=== PATIENT | male | born 1985 | race Hispanic/Latino ===

== ENCOUNTER 2017-05-05 07:31 | Emergency (ER) | payer OTHER ==
[~2017-05-05] VITALS: Ht 162.6 cm; Wt 61.2 kg
[~2017-05-05 07:31] MED LIST: IBUPROFEN800 MG PO; TRAMADOL HCL50 MG PO
[2017-05-05] MEDS ORDERED: AFRIN15 ML INH (07:43)
== END 2017-05-05 07:57 | disposition home or self-care (01) ==
LOC: ED 07:31
DX: Z00.8 Encounter for other general examination (principal)

== ENCOUNTER 2017-07-01 08:04 | Emergency (ER) | payer OTHER ==
[~2017-07-01] VITALS: Ht 162.6 cm; Wt 61.2 kg
[~2017-07-01 08:04] MED LIST changes: +AFRIN15 ML INH
[2017-07-01] MEDS ORDERED: KETOROLAC TROME10 MG PO (10:08)
== END 2017-07-01 10:24 | disposition home or self-care (01) ==
LOC: ED 08:04
DX: R10.9 Unspecified abdominal pain (principal); Z87.442 Personal history of urinary calculi; Z98.890 Other specified postprocedural states
CPT/HCPCS: 74176; 80053; 81001; 85025; 96374; 96375; 96376; 99284; J1885; J2405

== ENCOUNTER 2019-05-07 08:50 | Emergency (ER) | payer OTHER ==
[~2019-05-07] VITALS: Ht 162.6 cm; Wt 61.2 kg
[~2019-05-07 08:50] MED LIST changes: +KETOROLAC TROME10 MG PO
[2019-05-07] MEDS ORDERED: ALEVE220 MG PO (09:01)
[2019-05-07] MEDS ORDERED: ULTRAM50 MG PO (09:28)
[2019-05-07] MEDS ORDERED: CYCLOBENZAPRINE10 MG PO (09:28)
== END 2019-05-07 10:08 | disposition home or self-care (01) ==
LOC: ED 08:50
DX: S39.92XA Unspecified injury of lower back, initial encounter (principal); Z87.442 Personal history of urinary calculi; X50.1XXA Overexertion from prolonged static or awkward postures, initial encounter
CPT/HCPCS: 99283

== ENCOUNTER 2019-10-03 11:06 | Emergency (ER) | payer OTHER ==
[~2019-10-03] VITALS: Ht 162.6 cm; Wt 61.2 kg
[~2019-10-03 11:06] MED LIST changes: +ALEVE220 MG PO; +CYCLOBENZAPRINE10 MG PO; +ULTRAM50 MG PO
== END 2019-10-03 12:01 | disposition home or self-care (01) ==
LOC: ED 11:06
DX: S61.213A Laceration without foreign body of left middle finger without damage to nail, initial encounter (principal); Z23 Encounter for immunization; Z87.442 Personal history of urinary calculi; W26.8XXA Contact with other sharp object(s), not elsewhere classified, initial encounter
CPT/HCPCS: 90471; 90715; 99282-25

== ENCOUNTER 2021-01-06 07:04 | Emergency (ER) | payer BC, OTHER ==
[~2021-01-06] VITALS: Ht 162.6 cm; Wt 65.8 kg
[2021-01-06] MEDS ORDERED: MAGNESIUM250 M1 PO ×2 (07:16)
== END 2021-01-06 08:22 | disposition home or self-care (01) ==
LOC: ED 07:04
DX: K29.00 Acute gastritis without bleeding (principal); F17.200 Nicotine dependence, unspecified, uncomplicated; Z79.899 Other long term (current) drug therapy
CPT/HCPCS: 99283; J7030

== ENCOUNTER 2021-01-06 22:11 | Emergency (ER) | payer BC, OTHER ==
[~2021-01-06] VITALS: Ht 162.6 cm; Wt 65.8 kg
[~2021-01-06 22:11] MED LIST changes: +MAGNESIUM250 M1 PO
--- OUTSIDE RECORDS SUMMARY | 2021-01-06 22:14 | XMS ---
PreManage Notification: OSIRIS GROVER Security [employer]ish [employer]ender Events No recent Security Events currently on file CRITERIA MET - [facility] - 2 Visits in 30 Days CARE PROVIDERS [facility], Clinic/Center: [facility] PHONE: [phone] Care Guidelines exist for the following facilities: [facility] ( 02/17/2015 ) Ramy VISIT COUNT (12 MO.) 2 [facility] TOTAL 2 NOTE: Visits indicate total known visits. ED/UCC VISIT TRACKING (12 MO.) 01/06/2021 22:12 [facility] TYPE: Emergency COMPLAINT: - ANXIETY 01/06/2021 07:05 [facility] TYPE: Emergency COMPLAINT: - SOB, COUGHING, SNEEZING INPATIENT VISIT TRACKING (12 MO.) No inpatient visits to display in this time frame [id number]
--- NOTE | 2021-01-07 07:27 | EKG ---
[facility] [address] [facility] [place], [place] [address] Signed Sinus tachycardia Otherwise normal ECG No previous ECGs available Confirmed by REEMA VEGA MD ([id number]) on 01/07/2021 7:26:56 AM Electronically Signed By: REEMA VEGA MD 01/07/21 0727 PATIENT NAME: OSIRIS GROVER Electrocardiogram DATE OF : 81 PHYSICIAN: REEMA VEGA MD REPORT #: [id number] REPORT IS CONFIDENTIAL AND NOT TO BE RELEASED WITHOUT AUTHORIZATION
== END 2021-01-06 23:50 | disposition home or self-care (01) ==
LOC: ED 22:11
DX: F41.9 Anxiety disorder, unspecified (principal); R07.89 Other chest pain; F15.10 Other stimulant abuse, uncomplicated; F17.200 Nicotine dependence, unspecified, uncomplicated
CPT/HCPCS: 71045; 80053; 83735; 84484; 85025; 93005; 93010; 99285-25